=== PATIENT | male | born 1960 | race Caucasian/White ===

== ENCOUNTER 2024-04-04 07:23 | Day surgery (SDC) | payer BC, OTHER ==
[2024-04-04] MEDS ORDERED: Midazolam 1 MG/ML 2 ML SDV IV ONE (07:24)
[2024-04-04] MEDS ORDERED: Propofol 200 MG/20 ML SDV IV ONE (07:24)
[2024-04-04] MEDS ORDERED: Ketamine 500 mg/10 ML MDV IV ONE (07:24)
[2024-04-04] MEDS ORDERED: Lidocaine 2% 100 MG/5 ML Syringe IVPUSH ONE (07:24)
[2024-04-04] MEDS ORDERED: Sodium Chloride 0.9% 10 ML Syringe FLUSH PRN (07:30)
[2024-04-04] MEDS: Lactated Ringers 1,000 ML IV SCH (08:20)
[2024-04-04] MEDS: Simethicone Drops 40 MG/0.6 ML 30 ML Bottle ONE (08:48)
== END 2024-04-04 10:20 | disposition home or self-care (01) ==
LOC: FB.SDS 07:23
PROVIDERS: ATTEND Surgery
DX: Z12.11 Encounter for screening for malignant neoplasm of colon (principal); D12.0 Benign neoplasm of cecum; D12.6 Benign neoplasm of colon, unspecified; Z88.0 Allergy status to penicillin
CPT/HCPCS: 45385; 82947; 88305; A9270; J2250; J2704; J3490; J7120